=== PATIENT | female | born 1995 | race Two or more races ===

== ENCOUNTER 2018-04-23 21:56 | Observation (INO) | payer MEDICAID ==
[~2018-04-23] VITALS: Ht 165.1 cm; Wt 123.0 kg
[2018-04-23 23:15] VITALS: BP 135/72
== END 2018-04-24 01:15 | disposition home or self-care (01) ==
LOC: ER 21:56 → 8 EST LDRP 04-24 00:01 → UNDOADMOB 04-24 00:01 → UNDODISOB 04-24 01:15
PROVIDERS: ADMIT Obstetrics & Gynecology; ATTEND Obstetrics & Gynecology
DX: O26.893 Other specified pregnancy related conditions, third trimester (principal); R10.30 Lower abdominal pain, unspecified; Z3A.32 32 weeks gestation of pregnancy
CPT/HCPCS: 99281; G0378

== ENCOUNTER 2018-05-28 23:07 | Observation (INO) | payer MEDICAID ==
[~2018-05-28] VITALS: Ht 160 cm; Wt 136.1 kg
== END 2018-05-29 01:05 | disposition home or self-care (01) ==
LOC: 8 EST LDRP 23:07
PROVIDERS: ADMIT Obstetrics & Gynecology; ATTEND Obstetrics & Gynecology
DX: O26.893 Other specified pregnancy related conditions, third trimester (principal); R10.30 Lower abdominal pain, unspecified; Z3A.37 37 weeks gestation of pregnancy
CPT/HCPCS: 99281; G0378